=== PATIENT | female | born 1995 | race Caucasian/White ===

== ENCOUNTER 2023-10-08 13:55 | Outpatient (AMB) | payer MEDICAID, SELFPAY ==
--- NOTE | 2023-10-08 14:12 | A.OFFVIS_ITS ---
Intake VS Expanded 10/08/23 14:13 10/22/23 12:35 Height 5 ft 1.5 in 5 ft 1.5 in Weight 170 lb 10.205 oz 171 lb BMI 31.7 31.8 Intake Visit Reasons: Obesity-confirmed HPI Nutrition Presentation Details Pt presents for MNT for obesity. The Pt was referred by Izaiah Lepe from [facility]. The Pt reports gradually has been working on weight loss since 2 years ago, trying keto diet and exercise pt reports her wt was 200 lbs 2 yrs ago Goal weight at 130-145 lbs Food frequency dairy: no milk, cheese, no yogurt fish : not including fruits : 0-1/d (berries ) vegetables: 4-6 serving/d starches : 10 serving/d first meal -12: eggs/sausage, veggies 3-4 pm : rice/pasta/chicken or 2 vegetab les and 2 protein snack: peanut butter, rice cakes, water physical activity : 30 min to 60 min 3-4 times a week JIX-Ydcjfkv-Lw.Jeor Equation Height 5 ft 1.5 in Weight 171 lb Resting Metabolic Rate 1457.34 Calculated Activity Level Sedentary Calories Needed to Maintain Weight 1748.81 Diagnosis Nutrition problem #1 food nutri know defi As related to (etiology) #1 diagnosis As evidenced by (sign/symptom) #1 food recall and no prior educ - nutri rec Most Recent Diabetes Results: No Data to Display Assessment & Plan Assessment & Plan (1) Obesity (BMI 30.0-34.9): Code(s): E66.9 - Obesity, unspecified Plan: wt: 78 kg Est kcal needs as per MSJ: 1700 (40% carb, 30% protein/fat) Est fluid needs as per 30 ml/d: 2340 Est prot per day as per 1 g/kg bw: 78 Recommend fiber intake : 8-10 g per day and gradually increase to 25-28 g per day for women and 35-38 g for men or as tolerated Recommend sodium intake per day : less than 1500 mg less than 2000 mg Educated patient on: ( R = reviewed V = verbalizes understanding N/R = needs review N/A = not applicable * Food sources of carbohydrate, adequate serving sizes and its role in various health conditions: R * Differences between complex carbohydrates a simple carbohydrates, role of fiber in diet: R * Differences between types of fats and role in diet (mono on saturated fat fatty acids, saturated fatty acids, trans fats): R basic * Food sources of sodium in salt and healthy modifications for heart health in kidney health: NR * Vitamins and minerals: R * Healthy plate method concept: R * Physical activity: Benefits a precaution: R Plan 1489 Patient Instructions: practice mindful eating Reduce total carb at meal to 30-45g following healthy plate method , snack 0-20 g , 2 snacks a day see meal plan as reference Coding Level of Care Code Nutr Indiv Intake (98974) Diagnoses Obesity (BMI 30.0-34.9) E66.9 Time Spent (min) 30
[2023-10-08 14:13] VITALS: BMI 31.7
[2023-10-22 12:35] VITALS: BMI 31.8
== END 2023-10-08 14:43 | disposition home or self-care (01) ==
PROVIDERS: PCP Internal Medicine; Visit Provider Dietitian, Registered
DX: E66.9 Obesity, unspecified (principal)

== ENCOUNTER → 2023-10-08 13:55 | Outpatient (BNVA) | payer MEDICAID, SELFPAY | PROVIDERS: PCP Internal Medicine; Visit Provider Dietitian, Registered | DX: E66.9 Obesity, unspecified (principal); Z68.31 Body mass index [BMI] 31.0-31.9, adult | CPT/HCPCS: 97802 ==

== ENCOUNTER 2023-11-19 13:59 | Outpatient (AMB) | payer MEDICAID, SELFPAY ==
[2023-11-19 14:05] VITALS: BMI 31.6
--- NOTE | 2023-11-19 14:05 | A.OFFVIS_ITS ---
Intake VS Expanded 11/19/23 14:05 Height 5 ft 1.5 in Weight 169 lb 15.622 oz BMI 31.6 Intake Visit Reasons: dm/LVM HPI Nutrition Presentation Details Pt presents for MNT f/u for obesity Pt reports doing well incorporating a variety of foods in the diet, including fish at least twice a week, eggs, dairy along with vegetable and whole grain foods. Pt reports choosing home made meals following the healthy plate method. -Including fish at least twice a week -fruits: 1-2 x/day ( variety of fruits ) -dairy: not including daily , has yogurt 3-4 x/wk calcium rich foods (includefoods fortified with calcium, Wafllfes/oatmeal walking /gym once/wk : 45-60 minute (1 mile) taking vitamin C , probiotic on and off fluids: water, juice 60 oz/d Most Recent Diabetes Results: No Data to Display Assessment & Plan Assessment & Plan (1) Obesity (BMI 30.0-34.9): Code(s): E66.9 - Obesity, unspecified Plan: wt: 78 kg Est kcal needs as per MSJ: 1700 (40% carb, 30% protein/fat) Est fluid needs as per 30 ml/d: 2340 Est prot per day as per 1 g/kg bw: 78 Recommend fiber intake : 8-10 g per day and gradually increase to 25-28 g per day for women and 35-38 g for men or as tolerated Recommend sodium intake per day : less than 1500 mg less than 2000 mg Educated patient on: ( R = reviewed V = verbalizes understanding N/R = needs review N/A = not applicable * Food sources of carbohydrate, adequate serving sizes and its role in various health conditions: R * Differences between complex carbohydrates a simple carbohydrates, role of fiber in diet: R * Differences between types of fats and role in diet (mono on saturated fat fatty acids, saturated fatty acids, trans fats): R basic * Food sources of sodium in salt and healthy modifications for heart health in kidney health: NR * Vitamins and minerals: R * Healthy plate method concept: R * Physical activity: Benefits a precaution: R Plan 0316 Patient Instructions: Continue following healthy meal planning incorporating a variety of veg, protein , starches include omega 3 sources at least twice- three a week keep hydrated by having water with meals and snacks Coding Level of Care Code Nutr Indiv Subseq (56111) Diagnoses Obesity (BMI 30.0-34.9) E66.9 Time Spent (min) 30
== END 2023-11-19 14:19 | disposition home or self-care (01) ==
PROVIDERS: PCP Internal Medicine; Visit Provider Dietitian, Registered
DX: E66.9 Obesity, unspecified (principal)

== ENCOUNTER → 2023-11-19 13:59 | Outpatient (BNVA) | payer MEDICAID, SELFPAY | PROVIDERS: PCP Internal Medicine; Visit Provider Dietitian, Registered | DX: E66.9 Obesity, unspecified (principal); Z68.31 Body mass index [BMI] 31.0-31.9, adult | CPT/HCPCS: 97803 ==

== ENCOUNTER 2024-01-17 12:47 | Outpatient (REF) | payer MEDICAID, SELFPAY ==
--- NOTE | ~2024-01-17 | XR_ITS ---
EXAMINATION: XR FOOT, RIGHT CLINICAL INFORMATION: Right foot pain COMPARISON: None available. TECHNIQUE: AP, lateral, and oblique views of the right foot. FINDINGS: The bones and soft tissues are normal. No fracture. Alignment is anatomic. Joint spaces are maintained. Mild insertional Achilles enthesopathy. XR/XR foot RT min 3V IMPRESSION: Mild insertional Achilles enthesopathy.
[2024-01-17 13:03] LABS: MANUAL DIFF FLAG NO
[2024-01-17 14:00] LABS: Basophils Absolute Auto 0.1 X10*3/uL (0.0-0.2); Eosinophils Absolute Auto 0.1 X10*3/uL (0.0-0.4); Eosinophils Percent Auto 1.1 % (0-4); Hematocrit 40.3 % (37.0-47.0); Imm Gran Abs Auto 0.03 X10*3/uL (0.00-0.03); Imm Gran Pct Auto 0.3 % (0.0-0.4); Lymphocytes Absolute Auto 3.5 X10*3/uL (1.2-4.9); Mean Corpuscular HGB Conc 34.7 g/dl (31.0-35.0); Mean Corpuscular Hemoglobin 29.9 pg (27.0-33.0); Mean Corpuscular Volume 85.9 fL (80.0-98.0); Mean Platelet Volume 9.9 fL (9.4-12.3); Monocytes Absolute Auto 0.5 X10*3/uL (0.1-1.2); Monocytes Percent Auto 5.4 % (2-11); Neutrophils Absolute Auto 5.7 x10*3/uL (2.0-8.3); Neutrophils Percent Auto 57.2 % (45-73); Platelet Count 308 X10*3/uL (160-400); Red Blood Count 4.69 X10*6/uL (4.20-5.50); Red Cell Distribution Width 11.9 % (11.0-16.0)
[2024-01-17 14:26] LABS: Estimated Average Glucose 91 mg/dL; Hemoglobin A1c % 4.8 % (<6.0)
[2024-01-17 14:53] LABS: Alanine Aminotransferase 19 U/L (0-31); Anion Gap 12 (12-20); Aspartate Amino Transferase 18 U/L (5-31); Blood Urea Nitrogen 13 mg/dL (9-16); Calcium 9.6 mg/dL (8.4-10.2); Carbon Dioxide 27 mmol/L (22-29); Chloride 104 mmol/L (96-108); Cholesterol 156 mg/dL (<200); Estimated Glomerular Filt Rate > 60; Glucose Random 95 mg/dL (60-115); HDL Cholesterol 55 mg/dL (>40); LDL Cholesterol Calculated 93 mg/dL (<100); Potassium 3.6 mmol/L (3.3-5.1); Sodium 139 mmol/L (135-145); Triglycerides 41 mg/dL (<150)
[2024-01-17 15:08] LABS: Thyroid Stimulating Hormone 1.02 uIU/mL (0.32-4.0)
== END 2024-01-17 12:48 | disposition home or self-care (01) ==
LOC: HO.XRAY 12:47
PROVIDERS: PCP Internal Medicine; Visit Provider Internal Medicine
DX: Z00.00 Encounter for general adult medical examination without abnormal findings (principal); R79.9 Abnormal finding of blood chemistry, unspecified; M79.671 Pain in right foot; Z13.29 Encounter for screening for other suspected endocrine disorder; Z13.6 Encounter for screening for cardiovascular disorders
CPT/HCPCS: 36415; 73630; 80048; 80061; 83036; 84443; 84450; 84460; 85025

== ENCOUNTER 2024-01-20 14:00 | Outpatient (AMB) | payer MEDICAID, SELFPAY ==
[2024-01-20 14:08] VITALS: BMI 31.2
--- NOTE | 2024-01-20 14:08 | A.OFFVIS_ITS ---
Intake VS Expanded 01/20/24 14:08 Height 5 ft 1.5 in Weight 167 lb 15.876 oz BMI 31.2 Intake Visit Reasons: Wt check/obesity/CONFIRMED Medication List - Last Reconciled 01/20/[address], LDN cholecalciferol (vitamin D3) 25 mcg PO DAILY HPI Nutrition Presentation Details Pt presents for MNT f/u for weight check for obesity Pt reports working on healthier eating, and heathy coping mechanism when stressed. Pt reports keeping physically active , 20-30 minutes treadmill stopped drinking sodas for a week Reports following healthy plate method at lunch/dinner Most Recent Diabetes Results: Cholesterol 156 mg/dL (<200) 01/17/24 HDL Cholesterol 55 mg/dL (>40) 01/17/24 Triglycerides 41 mg/dL (<150) 01/17/24 Creatinine 0.78 mg/dL (0.5-1.4) 01/17/24 Blood Urea Nitrogen 13 mg/dL (9-16) 01/17/24 Sodium 139 mmol/L (135-145) 01/17/24 Potassium 3.6 mmol/L (3.3-5.1) 01/17/24 Chloride 104 mmol/L (96-108) 01/17/24 Carbon Dioxide 27 mmol/L (22-29) 01/17/24 Calcium 9.6 mg/dL (8.4-10.2) 01/17/24 AST 18 U/L (5-31) 01/17/24 ALT 19 U/L (0-31) 01/17/24 Assessment & Plan Assessment & Plan (1) Obesity (BMI 30.0-34.9): Code(s): E66.9 - Obesity, unspecified Plan: wt: 78 kg, 76 kg (01/2024) Est kcal needs as per MSJ: 1700 (40% carb, 30% protein/fat) Est fluid needs as per 30 ml/d: 2340 Est prot per day as per 1 g/kg bw: 78 Recommend fiber intake : 8-10 g per day and gradually increase to 25-28 g per day for women and 35-38 g for men or as tolerated Recommend sodium intake per day : less than 1500 mg less than 2000 mg Educated patient on: ( R = reviewed V = verbalizes understanding N/R = needs review N/A = not applicable * Food sources of carbohydrate, adequate serving sizes and its role in various health conditions: R * Differences between complex carbohydrates a simple carbohydrates, role of fiber in diet: R * Differences between types of fats and role in diet (mono on saturated fat fatty acids, saturated fatty acids, trans fats): R basic * Food sources of sodium in salt and healthy modifications for heart health in kidney health: NR * Vitamins and minerals: R * Healthy plate method concept: R * Physical activity: Benefits a precaution: R * calcium sources of foods Patient Instructions: Include at least a serving of calcium rich food in your diet ( fortified almond milk, yogurt, canned sardines/salmon, spinach, kale, greens) Continue physical activity goal 30 minutes at least 3 times a week Coding Level of Care Code Nutr Indiv Subseq (49723) Diagnoses Obesity (BMI 30.0-34.9) E66.9 Time Spent (min) 30
== END 2024-01-20 14:40 | disposition home or self-care (01) ==
PROVIDERS: PCP Internal Medicine; Visit Provider Dietitian, Registered
DX: E66.9 Obesity, unspecified (principal)

== ENCOUNTER → 2024-01-20 14:00 | Outpatient (BNVA) | payer MEDICAID, SELFPAY | PROVIDERS: PCP Internal Medicine; Visit Provider Dietitian, Registered | DX: E66.9 Obesity, unspecified (principal); Z68.31 Body mass index [BMI] 31.0-31.9, adult | CPT/HCPCS: 97803 ==

== ENCOUNTER 2024-02-04 07:58 | Outpatient (AMB) | payer MEDICAID, SELFPAY ==
[2024-02-04 08:04] VITALS: BP 104/68; BMI 30.9
--- NOTE | 2024-02-04 08:04 | MHC.OFFVIS ---
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 Doing well with concerns: Menses are short times 2-3 days, also reports facial acne. Not on control for years. Last TSH 01/17/24 was 1.02., she is concerned she may have a hormone imbalance. She tries to eat healthy and stays active with exercise. Regular monthly menses. Currently is sexually active, long-term partner of many years. She denies vaginal itching and irritation. STI screening offered; she accepts. Declines bloodwork. Denies family history of breast, ovarian or colon cancer. Last pap smear unknown. [facility] Medical History (Updated 02/04/24 @ 08:42 by JEFFY Ascencio) Migraine with aura Family History Maternal Grandmother History of breast cancer Paternal Grandmother History of breast cancer Social History Alcohol intake: current Alcohol intake frequency: holidays/special occasions only Patient Tobacco Use Status: Never used Tobacco Substance Use Type: Marijuana Female Reproductive History Menstrual Duration of menses: 3-5 days Date of last menstrual period: 02/01/24 control method: none Total pregnancies: 0 Review of Systems Const All systems reviewed & are unremarkable except as noted in HPI and below Reports as per HPI Eyes Reports no additional complaints ENT Reports no additional complaints Card Reports no additional complaints Resp Reports no additional complaints GI Reports as per HPI and Reports no additional complaints Reports as per HPI Musc Reports no additional complaints Skin/Breast Reports as per HPI Neuro Reports no additional complaints Psych Reports no additional complaints Endo Reports no additional complaints Sky/Lymph Reports no additional complaints Aller/Immun Reports no additional complaints Physical Exam Vital Signs: Last Vital Signs BP 104/68 02/04/24 08:04 BMI result Body Mass Index 30.9 Const General: cooperative, healthy appearing, no acute distress, well developed and alert Orientation/consciousness: patient oriented x3 HEENT Head: Yes normal to inspection Eyes General: appearance normal, both eyes and all related structures Neck Neck: Yes normal visual inspection Thyroid: Thyroid normal Chest Chest palpation & inspection: normal inspection of the chest and other (no puckering, dimpling, peau de orange, retraction, discharge, masses) Breast/axilla inspection: normal inspection of the breasts Breast/axilla palpation: normal palpation of the breasts Resp Effort & Inspection: normal respiratory effort GI Inspection: Yes normal to inspection Palpation (GI): Soft to palpation Rectal Exam - Female: deferred General: Yes bladder normal to palpation External Female Exam: normal external appearance and normal appearance of the urethra Speculum Exam - Vagina: normal appearance of the vagina, normal palpation and normal vaginal discharge Speculum Exam - Cervix: normal appearance of the cervix and normal palpation Bimanual exam- vagina & uterus: normal bimanual exam, normal palpation, uterine size normal, bladder normal to palpation, normal palpation and non-tender Bimanual Exam- Adnexa, other: no masses Skin General skin exam: no rashes or lesions noted Rashes: no rashes Neuro General: patient oriented x3 Cognition (Neuro): normal cognition Extrem General: Yes normal to inspection Psych Attitude: cooperative Thought process: Normal thought process present Assessment & Plan Assessment & Plan (1) Oligomenorrhea: Code(s): N91.5 - Oligomenorrhea, unspecified Qualifiers: Oligomenorrhea type: unspecified type Qualified Code(s): N91.5 - Oligomenorrhea, unspecified (2) Acne: Code(s): L70.9 - Acne, unspecified Qualifiers: Acne type: unspecified acne Qualified Code(s): L70.9 - Acne, unspecified (3) Encounter for well woman exam with routine gynecological exam: Code(s): Z01.419 - Encounter for gynecological examination (general) (routine) without abnormal findings Plan Discussed: Current recommendations for pap smears per ASCCP guidelines. Breast awareness and periodic breast exams. Maintain a healthy lifestyle including a well balanced diet and routine exercise. Use condoms for prevention. Plan lab and ultrasound assessment for symptoms, and follow-up in office for test results. Patient verbalizes understanding and agrees to the plan of care. She was given opportunity to ask questions and all questions were answered to the best of my ability. 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 This note is constructed using voice recognition software. While every effort has been made to ensure accuracy, paper pattern folder errors may have been included. Orders: Orders Pap Smear Today Z01.419 - Encounter for gynecological examination (general) (routine) without abnormal findings Testosterone, Free/Total Today L70.9 - Acne, unspecified, N91.5 - Oligomenorrhea, unspecified Prolactin Today L70.9 - Acne, unspecified, N91.5 - Oligomenorrhea, unspecified CT NG by PCR Today L70.9 - Acne, unspecified, N91.5 - Oligomenorrhea, unspecified, Z20.2 - Contact with and (suspected) exposure to infections with a predominantly sexual mode of transmission 17 Hydroxyprogesterone Today L70.9 - Acne, unspecified, N91.5 - Oligomenorrhea, unspecified US pelvic and transvaginal Today L70.9 - Acne, unspecified, N91.5 - Oligomenorrhea, unspecified Coding Level of Care Code New Pt Prev Care 18-39yr([id number] Diagnoses Oligomenorrhea, unspecified type N91.5 Oligomenorrhea type: unspecified type Acne, unspecified acne type L70.9 Acne type: unspecified acne Encounter for well woman exam with routine gynecological exam Z01.419
== END 2024-02-04 08:42 | disposition home or self-care (01) ==
PROVIDERS: PCP Internal Medicine; Visit Provider Advanced Practice Midwife
DX: N91.5 Oligomenorrhea, unspecified (principal); L70.9 Acne, unspecified; Z01.419 Encounter for gynecological examination (general) (routine) without abnormal findings
CPT/HCPCS: 99385

== ENCOUNTER 2024-02-04 07:58 | Outpatient (REF) | payer MEDICAID, SELFPAY ==
[2024-02-05 05:42] LABS: CT PCR NOT DETECTED (Not Detect.); NG PCR NOT DETECTED (Not Detect.)
== END 2024-02-04 07:59 | disposition home or self-care (01) ==
LOC: HO.LNP 07:58
PROVIDERS: PCP Internal Medicine; Visit Provider Advanced Practice Midwife
DX: Z01.419 Encounter for gynecological examination (general) (routine) without abnormal findings (principal); N91.5 Oligomenorrhea, unspecified; L70.9 Acne, unspecified; Z20.2 Contact with and (suspected) exposure to infections with a predominantly sexual mode of transmission
CPT/HCPCS: 0353U; 88142; 99385

== ENCOUNTER 2024-02-21 16:23 | Outpatient (REF) | payer MEDICAID, SELFPAY ==
--- NOTE | ~2024-02-21 | US_ITS ---
EXAMINATION: US PELVIS CLINICAL INFORMATION: Oligomenorrhea. 28-year-old, LMP 02/04/2024 COMPARISON: None available. TECHNIQUE: Ultrasound of the pelvis is performed using both transabdominal transducers along with Doppler. FINDINGS: Uterus: The uterus is anteverted and measures 6.6 x 3.1 x 4.5 cm. The double wall endometrial thickness is 5 mm. The uterus is smooth in contour and has normal myometrial echogenicity. No visible fibroid. Adnexa: Both ovaries are visualized. There is normal color flow to the adnexa. There is no ovarian torsion. There is no pelvic ascites or fluid collection. Right ovary measures 3.7 x 1.8 x 2.0 cm. Left ovary measures 2.8 x 2.1 x 1.8 cm. US/US pelvic complete IMPRESSION: Unremarkable transabdominal pelvic ultrasound.
== END 2024-02-21 16:24 | disposition home or self-care (01) ==
LOC: HO.US 16:23
PROVIDERS: PCP Internal Medicine; Visit Provider Advanced Practice Midwife
DX: N91.5 Oligomenorrhea, unspecified (principal); L70.9 Acne, unspecified
CPT/HCPCS: 76856

== ENCOUNTER → 2024-03-06 15:48 | Outpatient (BNVA) | payer MEDICAID, SELFPAY | PROVIDERS: PCP Internal Medicine; Visit Provider Advanced Practice Midwife | DX: Z71.2 Person consulting for explanation of examination or test findings (principal) | CPT/HCPCS: 99212 ==

== ENCOUNTER 2024-05-01 13:45 | Outpatient (REF) | payer MEDICAID, SELFPAY ==
[2024-05-03 00:24] LABS: Prolactin 8.1 ng/mL
[2024-05-07 13:58] LABS: Testosterone, Free 2.9 pg/mL (0.1-6.4); Testosterone, Total 31 ng/dL (2-45)
== END 2024-05-01 13:46 | disposition home or self-care (01) ==
LOC: HO.LAB 13:45
PROVIDERS: Visit Provider Advanced Practice Midwife
DX: N91.5 Oligomenorrhea, unspecified (principal); L70.9 Acne, unspecified
CPT/HCPCS: 36415; 83498; 84146; 84402; 84403

== ENCOUNTER 2025-02-23 09:05 | Outpatient (AMB) | payer BC, SELFPAY ==
--- NOTE | 2025-02-23 09:06 | MHC.OFFVIS ---
Vital Signs 02/23/25 09:07 Height 5 ft 1 in Weight 171 lb BMI 32.3 BP 114/76 Intake Visit Reasons: Annual/ DO NOT R/S Certified Diabetes Educator: Certified Diabetes Educator Present (Renetta) Allergies No Known Allergies Allergy (Verified 02/23/25 09:10) Is last menstrual period known: Yes Last menstrual period: 02/10/25 [facility] Comments Details: She is a premenopausal woman presenting for annual examination. 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 Regular monthly menses. Engaged, uses current abstinence. She denies vaginal itching and irritation. STI screening offered; she declined. She tries to eat healthy and stays active with exercise. Denies family history of ovarian or colon cancer. FH breast cancer. Last pap smear 2023, negative. [facility] Medical History Migraine with aura Family History Maternal Grandmother History of breast cancer Paternal Grandmother History of breast cancer Social History Alcohol intake: current Alcohol intake frequency: holidays/special occasions only Patient Tobacco Use Status: Never used Tobacco Substance Use Type: Marijuana Female Reproductive History Menstrual Date of last menstrual period: 02/10/25 control method: none Total pregnancies: 0 Date of last pap smear: 02/19/24 (neg) Review of Systems Const All systems reviewed & are unremarkable except as noted in HPI and below Reports as per HPI Eyes Reports no additional complaints ENT Reports no additional complaints Card Reports no additional complaints Resp Reports no additional complaints GI Reports as per HPI and Reports no additional complaints Reports as per HPI Musc Reports no additional complaints Skin/Breast Reports as per HPI Neuro Reports no additional complaints Psych Reports no additional complaints Endo Reports no additional complaints Sky/Lymph Reports no additional complaints Aller/Immun Reports no additional complaints Physical Exam Vital Signs: Last Vital Signs BP 114/76 02/23/25 09:07 BMI result Body Mass Index 32.3 Const General: cooperative, healthy appearing, no acute distress, well developed and alert Orientation/consciousness: patient oriented x3 HEENT Head: Yes normal to inspection Eyes General: appearance normal, both eyes and all related structures Neck Neck: Yes normal visual inspection Thyroid: Thyroid normal Chest Chest palpation & inspection: normal inspection of the chest and other (no puckering, dimpling, peau de orange, retraction, discharge, masses) Breast/axilla inspection: normal inspection of the breasts Breast/axilla palpation: normal palpation of the breasts Resp Effort & Inspection: normal respiratory effort GI Inspection: Yes normal to inspection Palpation (GI): Soft to palpation Rectal Exam - Female: deferred General: Yes bladder normal to palpation External Female Exam: normal external appearance and normal appearance of the urethra Speculum Exam - Vagina: normal appearance of the vagina, normal palpation and normal vaginal discharge Speculum Exam - Cervix: normal appearance of the cervix and normal palpation Bimanual exam- vagina & uterus: normal bimanual exam, normal palpation, uterine size normal, bladder normal to palpation, normal palpation and non-tender Bimanual Exam- Adnexa, other: no masses Skin General skin exam: no rashes or lesions noted Rashes: no rashes Neuro General: patient oriented x3 Cognition (Neuro): normal cognition Extrem General: Yes normal to inspection Psych Attitude: cooperative Thought process: Normal thought process present Assessment & Plan Assessment & Plan (1) Encounter for well woman exam with routine gynecological exam: Code(s): Z01.419 - Encounter for gynecological examination (general) (routine) without abnormal findings Category: Medical Plan Discussed: Current recommendations for pap smears per ASCCP guidelines. Breast awareness and periodic breast exams. Maintain a healthy lifestyle including a well balanced diet and routine exercise. Use condoms, declines control. Patient verbalizes understanding and agrees to the plan of care. She was given opportunity to ask questions and all questions were answered to the best of my ability. 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 This note is constructed using voice recognition software. While every effort has been made to ensure accuracy, sail finisher machine errors may have been included. Coding Level of Care Code Est Pt Prev Care 18-39y(02189) Diagnoses Encounter for well woman exam with routine gynecological exam Z01.419
[2025-02-23 09:07] VITALS: BP 114/76; BMI 32.3
--- OUTSIDE RECORDS SUMMARY | 2025-02-23 09:40 | XMS_ITS | Clinical Summary ---
Author Organization [address] Address [address] [place] [address] [place] [address] Phone Care Team Providers Care Casual Shoe Inspector Name Role Phone Raúl Jeffries DO Primary Care Provider [phone] Social History Tobacco Use Types Packs/Day Years Used Date Smoking Tobacco: Never Assessed Comments Unknown Sex and Gender Information Value Date Recorded Sex Assigned at Not on file Legal Sex Female 12:20 AM EST Gender Identity Not on file Sexual Orientation Not on file Plan of Treatment Health Maintenance Due Date Last Done Comments Cervical Cancer Screening: Pap Smear 2017 COVID-19 Vaccine ( season) 2024 Depression Screening 01/28/2025 HIV Screening 01/28/2025 Hepatitis C Screening 01/28/2025 Social Influencers of Health Screening 01/28/2025 Influenza Vaccine (Season Ended) 2025 DTaP,Tdap,and Td Vaccines (8 - Td or Tdap) 02/12/2027 02/12/2017, 07/13/2008, 09/30/2001, Additional history exists Cholesterol Screening (Lipid Panel) 01/28/2030 01/28/2025 Hepatitis B Vaccines Completed 08/27/1997, 1996, 1996 HIB Vaccines Completed 12/31/1997, 05/11, 03/19/1997, Additional history exists IPV Vaccines Completed 09/30/2001, 12/13, 05/21/1997, Additional history exists MMR Vaccines Completed 09/30/2001, 12/31/1997 Varicella Vaccines Completed 07/13/2008, 09/23/1997 Meningococcal ACWY Vaccine Completed 01/26/2015, HPV Vaccines Completed 12/23/2016, 01/09, 10/22/2013 Hepatitis A Vaccines Aged Out No long er eligible based on patient's age to complete this topic Meningococcal B Vaccine Aged Out No l onger eligible based on patient's age to complete this topic Pneumococcal Vaccine: Pediatrics (0 to 5 Years) and At-Risk Patients (6 to 64 Years) Aged Out No longer eligible based on patient's age to complete this topic RSV Immunization Patients Under 20 months Aged Out No longer eligible based on patient's age to complete this topic Procedures Procedure Name Priority Date/Time Associated Diagnosis Comments CBC WITH AUTO DIFFERENTIAL Routine 01/28/2025 9:11 AM EDT Routine general medical examination at a health care facility Major depressive disorder, single episode, unspecified Screening for thyroid disorder Screening for lipoid disorders Impaired fasting glucose HEMOGLOBIN A1C Routine 01/28/2025 9:11 AM EDT Routine general medical examination at a health care facility Major depressive disorder, single episode, unspecified Screening for thyroid disorder Screening for lipoid disorders Impaired fasting glucose CBC AND DIFFERENTIAL Routine 01/28/2025 9:11 AM EDT Routine general medical examination at a health care facility Major depressive disorder, single episode, unspecified Screening for thyroid disorder Screening for lipoid disorders Impaired fasting glucose THYROID STIMULATING HORMONE Routine 01/28/2025 9:11 AM EDT Routine general medical examination at a health care facility Major depressive disorder, single episode, unspecified Screening for thyroid disorder Screening for lipoid disorders Impaired fasting glucose BASIC METABOLIC PANEL Routine 01/28/2025 9:11 AM EDT Routine general medical examination at a health care facility Major depressive disorder, single episode, unspecified Screening for thyroid disorder Screening for lipoid disorders Impaired fasting glucose LIPID PANEL WITH REFLEX TO DIRECT LDL Routine 01/28/2025 9:11 AM EDT Routine general medical examination at a health care facility Major depressive disorder, single episode, unspecified Screening for thyroid disorder Screening for lipoid disorders Impaired fasting glucose from Last 3 Months Results * Lipid panel with reflex to direct LDL (01/28/2025 9:11 AM EDT) Cholesterol 160 0 - 200 mg/dL LAB CHEMISTRY METHOD 01/28/2025 11:33 AM EDT [facility] Triglycerides 60 0 - 150 mg/dL LAB CHEMISTRY METHOD 01/28/2025 11:33 AM EDT [facility] HDL 68 >=40 mg/dL LAB CHEMISTRY METHOD 01/28/2025 11:33 AM EDT [facility] LDL Calculated 80 0 - 100 mg/dL LAB CHEMISTRY METHOD [facility]/28[facility]25 [facility] VLDL Cholesterol Santos 12 mg/dL LAB CHEMISTRY METHOD 01/28/2025 11:[facility] Non HDL Chol. (LDL+VLDL) 92 <145 mg/dL LAB CHEMISTRY METHOD 01/28/2025 11:33 AM [facility] Chol/HDL Ratio 2.4 0.0 - 4.4 LAB CHEMISTRY METHOD 01/28/2025 11:33 AM T [facility] Blood Venous blood specimen / Unknown Venipuncture / Unknown 01/28/2025 9:11 AM EDT 01/28/2025 9:11 AM EDT us Garcia Kaufman ENTRY LEVEL ACCOUNT EXECUTIVE LAB BLOOD ORDERABLES Final Resul t [facility] [address] [place] [address], * (ABNORMAL) CBC auto differential (01/28/2025 9:11 AM EDT) WBC 9.1 4.8 - 10.8 K/mcL LAB HEMETOLOGY METHOD 01/28/2025 11:22 AM EDT [facility] RBC 4.70 3.80 - 4.80 M/mcL LAB HEMETOLOGY METHOD 01/28/2025 11:22 AM EDT [facility] Hemoglobin 14.2 11.5 - 16.0 g/dL LAB HEMETOLOGY METHOD 01/28/2025 11:22 AM [facility] Hematocrit 41.8 35.0 - 47.0 % LAB HEMETOLOGY METHOD 01/28/2025 11:22 AM [facility] MCV 88.2 79.0 - 98.0 FL LAB HEMETOLOGY METHOD 01/28/2025 11:22 AM [facility] MCH 30.0 27.0 - 32.0 pcg LAB HEMETOLOGY METHOD 01/28/2025 11:22 AM [facility] MCHC 34.0 32.0 - 37.0 g/dL LAB HEMETOLOGY METHOD 01/28/2025 11:22 AM [facility] RDW 12.1 11.0 - 15.0 % LAB HEMETOLOGY METHOD 01/28/2025 11:22 AM [facility] Platelets 317 130 - 400 K/mcL LAB HEMETOLOGY METHOD 01/28/2025 11:22 AM [facility] MPV 9.8 7.0 - 11.0 FL LAB HEMETOLOGY METHOD 01/28/2025 11:22 AM [facility] NRBC 0.0 <1.0 % LAB HEMETOLOGY METHOD 01/28/2025 11:22 AM [facility] NRBC Absolute 0.00 <0.10 K/mcL LAB HEMETOLOGY METHOD 01/28/2025 11:22 AM [facility] Neutrophils Relative 55.7 % LAB HEMETOLOGY METHOD 01/28/2025 11:22 AM [facility] Lymphocytes Relative 35.7 % LAB HEMETOLOGY METHOD 01/28/2025 11:22 AM [facility] Monocytes Relative 5.5 % LAB HEMETOLOGY METHOD 01/28/2025 11:22 AM EDT [facility] Eosinophils Relative 1.8 % LAB HEMETOLOGY METHOD 01/28/2025 11:22 AM EDT [facility] Basophils Relative 0.9 % LAB HEMETOLOGY METHOD 01/28/2025 11:[facility] Immature Granulocytes Relative 0.4 % LAB HEMETOLOGY METHOD 01/28/2025 11:22 AM EDT [facility] Neutrophils Absolute 5.05 1.50 - 7.00 K/mcL LAB HEMETOLOGY METHOD 01/28/2025 11:22 AM EDT [facility] Lymphocytes Absolute 3.24 1.00 - 5.00 K/mcL LAB HEMETOLOGY METHOD 01/28/2025 11:22 AM [facility] Monocytes Absolute 0.50 0.20 - 1.00 K/mcL LAB HEMETOLOGY METHOD 01/28/2025 11:22 AM EDT [facility] Eosinophils Absolute 0.16 0.00 - 0.50 K/mcL LAB HEMETOLOGY METHOD 01/28/2025 11:22 AM EDT [facility] Basophils Absolute 0.08 0.00 - 0.20 K/mcL LAB HEMETOLOGY METHOD 01/28/2025 11:22 AM [facility] Immature Granulocytes Absolute 0.04(H) 0.00 - 0.03 K/mcL LAB HEMETOLOGY METHOD 01/28/2025 11:22 AM EDT [facility] Blood Venous blood specimen / Unknown Venipuncture / Unknown 01/28/2025 9:11 AM EDT 01/28/2025 9:11 AM EDT us Garcia Kaufman ENTRY LEVEL ACCOUNT EXECUTIVE LAB BLOOD ORDERABLES Final Resul t [facility] [address] [place] [address], [place] [phone] * Thyroid stimulating hormone (01/28/2025 9:11 AM EDT) TSH 1.88 0.40 - 4.00 mcIU/mL LAB CHEMISTRY METHOD 01/28/2025 11:25 AM EDT [facility] Blood Venous blood specimen / Unknown Venipuncture / Unknown 01/28/2025 9:11 AM EDT 01/28/2025 9:11 AM EDT Garcia [facility] LAB BLOOD ORDERABLES Final Resul t Performing Organization Address City/[facility]/ZIP Co de Phone Number [facility] [address] [place] [address], [place] [phone] * Hemoglobin A1c (01/28/2025 9:11 AM EDT) Pathologist [facility] Hemoglobin A1C 5.1 <6.5 % LAB CHEMISTRY METHOD 01/28/2025 1:57 PM EDT [facility] Mean Bld Glu Estim. 100 mg/dL LAB CHEMISTRY METHOD 01/28/2025 1:57 PM EDT [facility] Blood Venous blood specimen / Unknown Venipuncture / Unknown 01/28/2025 9:11 AM EDT 01/28/2025 9:11 AM EDT Garcia [facility] LAB BLOOD ORDERABLES Final Resul t Performing Organization Address City/[facility]/ZIP Co de Phone Number [facility] [address] [place] [address], [place] [phone] * Basic metabolic panel (01/28/2025 9:11 AM EDT) Pathologist [facility] Sodium 139 133 - 145 mmol/L LAB CHEMISTRY METHOD 01/28/2025 11:33 AM EDT [facility] Potassium 4.2 3.5 - 5.5 mmol/L LAB CHEMISTRY METHOD 01/28/2025 11:33 [facility] Chloride 106 96 - 110 mmol/L LAB CHEMISTRY METHOD 01/28/2025 11:33 AM [facility] CO2 25 21 - 32 mmol/L LAB CHEMISTRY METHOD 01/28/2025 11:33 AM [facility] Anion Gap 8 3 - 11 LAB CHEMISTRY METHOD 01/28/2025 11:33 AM [facility] Glucose 83 70 - 100 mg/dL LAB CHEMISTRY METHOD 01/28/2025 11:33 AM [facility] BUN 11 5 - 25 mg/dL LAB CHEMISTRY METHOD 01/28/2025 11:33 AM [facility] Creatinine 0.62 0.50 - 1.10 mg/dL LAB CHEMISTRY METHOD 01/28/2025 11:33 AM [facility] eGFR 125 >=60 mL/min/1. 73m2 LAB CHEMISTRY METHOD 01/28/2025 11:33 AM [facility] Comment:Calculation based on the??Chronic Kidney Disease Epidemiology Collaboration (CKD-EPI) equation refit??without adjustment for race. BUN/Creatinine Ratio 17.7 LAB CHEMISTRY METHOD 01/28/2025 11:33 AM [facility] Calcium 9.4 8.5 - 10.5 mg/dL LAB CHEMISTRY METHOD 01/28/2025 11:33 AM [facility] Blood Venous blood specimen / Unknown Venipuncture / Unknown 01/28/2025 9:11 AM EDT 01/28/2025 9:11 AM EDT us Garcia Kaufman ENTRY LEVEL ACCOUNT EXECUTIVE LAB BLOOD ORDERABLES Final Resul t [facility] [address] [place] [address], [place] [phone] from Last 3 Months Care Teams Casual Shoe Inspector Relationship Specialty Start Date End Date Raúl Jeffries DO [address] [place] [phone] PCP - General Internal Medicine 01/28/25
== END 2025-02-23 09:35 | disposition home or self-care (01) ==
LOC: HO.HWS 09:05
PROVIDERS: PCP Internal Medicine; Visit Provider Advanced Practice Midwife
DX: Z01.419 Encounter for gynecological examination (general) (routine) without abnormal findings (principal)
CPT/HCPCS: 99395; 99459